=== PATIENT | female | born 1985 | race Hispanic/Latino ===

== ENCOUNTER 2017-08-24 19:21 | Emergency (ER) | payer OTHER ==
--- NOTE | 2017-08-24 20:17 | C.PDOC ---
History Of Present Illness 32 year old female presents to the ED c/o abdominal pain, constipation and decreased PO that started 2 days ago. Patient states she felt cotton mouth, but today she was able to have some water. Patient reports she is a regular heroin user. Patient states her LMP is just finishing. Patient denies fever, chills, nausea, vomit, dysuria, diarrhea. Chief Complaint (Nursing): GI Problem History Per: Patient History/Exam Limitations: no limitations Onset/Duration Of Symptoms: Days Current Symptoms Are (Timing): Still Present Location Of Pain/Discomfort: Diffuse Radiation Of Pain To:: None Quality Of Discomfort: "Pain" Associated Symptoms: Loss Of Appetite, Constipation Exacerbating Factors: None Alleviating Factors: None Recent travel outside of the [place]: No Additional History Per: Patient Abnormal Vaginal Bleeding: No Past Medical History Reviewed: Historical Data, Nursing Documentation, Vital Signs Vital Signs: Last Vital Signs Temp 98.0 F 08/24/17 21:40 Pulse 72 08/24/17 21:40 Resp 18 08/24/17 21:40 BP 127/84 08/24/17 21:40 Pulse Ox 96 08/24/17 21:40 - Medical History PMH: No Chronic Diseases Surgical History: No Surg Hx Family History: States: Unknown Family Hx - Social History Hx Alcohol Use: No Hx Substance Use: Yes Review Of Systems Constitutional: Negative for: Fever, Chills Cardiovascular: Negative for: Chest Pain, Palpitations Gastrointestinal: Positive for: Abdominal Pain, Constipation Musculoskeletal: Negative for: Back Pain Skin: Negative for: Rash Neurological: Negative for: Weakness, Numbness Physical Exam - Physical Exam Appears: Non-toxic, No Acute Distress Skin: Normal Color, Warm, Dry Head: Atraumatic, Normacephalic Eye(s): bilateral: Normal Inspection Nose: No Discharge Oral Mucosa: Dry Neck: Normal ROM, Supple Chest: Symmetrical Cardiovascular: Rhythm Regular, No Murmur, Other (resting pulse of 92) Respiratory: Normal Breath Sounds, No Rales, No Rhonchi, No Wheezing Gastrointestinal/Abdominal: Soft, No Tenderness, No Guarding, No Rebound Extremity: Normal ROM, No Tenderness, No Swelling Neurological/Psych: Oriented x3, Normal Speech ED Course And Treatment O2 Sat by Pulse Oximetry: 95 (On RA) Pulse Ox Interpretation: Normal Medical Decision Making Medical Decision Making: Impression: abdominal pain, constipation Plan: * Zofran 4 mg PO * PO challenge * UA Patient reports she is a regular heroin user. Disposition - Disposition Referrals: [facility] [Outside] Disposition: HOME/ ROUTINE Disposition Time: 05:14 Condition: GOOD Instructions: Dehydration, Adult (DC), Polysubstance Abuse Forms: [facility] (Yemeni) Print Language: GUYANESE - Clinical Impression Clinical Impression: Dehydration - Scribe Statement The provider has reviewed the documentation as recorded by the Scribe Crow Jones All medical record entries made by the Scribe were at my direction and personally dictated by me. I have reviewed the chart and agree that the record accurately reflects my personal performance of the history, physical exam, medical decision making, and the department course for this patient. I have also personally directed, reviewed, and agree with the discharge instructions and disposition.
[2017-08-24 20:49] LABS: SQUAMOUS EPITHIAL 10 /hpf (0-5); URINE BACTERIA FEW (<OCC); URINE BILIRUBIN NEGATIVE (NEGATIVE); URINE BLOOD 2+ (NEGATIVE); URINE CLARITY Hazy (Clear); URINE COLOR Amber (YELLOW); URINE GLUCOSE (UA) NORMAL (Normal); URINE LEUKOCYTE ESTERASE TRACE Leu/uL (Negative); URINE PROTEIN 2+ mg/dL (NEGATIVE)
[2017-08-24 21:40] VITALS: BP 127/84; PULSE 72; RESP 18; TEMP 98
[2017-08-25 05:18] VITALS: O2SAT 95
== END 2017-08-24 21:41 | disposition home or self-care (01) ==
LOC: C.ER 19:21
DX: E86.0 Dehydration (principal)

== ENCOUNTER 2017-08-30 16:16 | Inpatient (IN) | payer MEDICAID, MEDICARE, OTHER ==
[2017-08-30 17:43] LABS: HCG,QUALITATIVE URINE NEGATIVE (NEGATIVE)
[2017-08-30 17:46] LABS: SQUAMOUS EPITHIAL 17 /hpf (0-5); URINE BACTERIA OCC (<OCC); URINE BILIRUBIN NEGATIVE (NEGATIVE); URINE BLOOD NEGATIVE (NEGATIVE); URINE CLARITY Hazy (Clear); URINE COLOR Amber (YELLOW); URINE GLUCOSE (UA) NORMAL (Normal); URINE LEUKOCYTE ESTERASE NEG Leu/uL (Negative); URINE PROTEIN 1+ mg/dL (NEGATIVE)
[2017-08-30 18:05] LABS: BARBITURATES, UR NEGATIVE (NEGATIVE); BENZODIAZEPINES, UR NEGATIVE (NEGATIVE); PHENCYCLIDINE, UR NEGATIVE (NEGATIVE)
[2017-08-30 18:08] LABS: OPIATES, UR POSITIVE (NEGATIVE)
--- NOTE | 2017-08-30 18:16 | C.PDOC ---
History Of Present Illness <Mallika Hicks - Last Filed: 08/30/17 18:45> <Alejandro Hernandez - Last Filed: 08/30/17 19:20> Patient is a 32 y/o female who presents to the ED for heroin detox. Admits to IVDA. Patient admits last use was today. Denies any PMH. Has no complaints. Denies SI/HI. (Mallika Hicks) History Per: Patient History/Exam Limitations: no limitations Onset/Duration Of Symptoms: Hrs (last use today) Current Symptoms Are (Timing): Still Present Modifying Factor(s): Narcotics (heroin) Recent travel outside of the [place]: No <Mallika Hicks - Last Filed: 08/30/17 18:45> <Alejandro Hernandez - Last Filed: 08/30/17 19:20> Time Seen by Provider: 08/30/17 16:39 Chief Complaint (Nursing): Substance Abuse Past Medical History Reviewed: Historical Data, Nursing Documentation, Vital Signs - Medical History PMH: No Chronic Diseases Denies: Diabetes, Hepatitis, HIV, HTN, Seizures, Sexually Transmitted Disease Surgical History: No Surg Hx Family History: States: No Known Family Hx - Social History Hx Tobacco Use: Yes (heavy smoker) Hx Alcohol Use: No Hx Substance Use: Yes <Mallika Hicks - Last Filed: 08/30/17 18:45> Vital Signs: Last Vital Signs Temp 97.7 F 08/30/17 16:20 Pulse 77 08/30/17 16:20 Resp 16 08/30/17 16:20 BP 132/82 08/30/17 16:20 Pulse Ox 99 08/30/17 18:47 Review Of Systems Psych: Positive for: Withdrawal (requesting heroin detox) <Mallika Hicks - Last Filed: 08/30/17 18:45> Physical Exam - Physical Exam Appears: Well, Non-toxic, No Acute Distress Skin: Normal Color, Warm, Dry, Other (track pool on right upper arm) Head: Atraumatic, Normacephalic Eye(s): bilateral: Normal Inspection, EOMI Oral Mucosa: Moist Neck: Normal ROM, Supple Cardiovascular: Rhythm Regular Respiratory: Normal Breath Sounds, No Rales, No Rhonchi, No Wheezing Gastrointestinal/Abdominal: Soft, No Tenderness Neurological/Psych: Oriented x3, Normal Speech <Mallika Hicks - Last Filed: 08/30/17 18:45> ED Course And Treatment - Laboratory Results Result Diagrams: 08/30/17 18:12 O2 Sat by Pulse Oximetry: 99 Progress Note: Case endorsed to Dr Hernandez pending crisis evaluation and disposition. <Mallika Hicks - Last Filed: 08/30/17 18:45> - Laboratory Results Result Diagrams: 08/30/17 18:12 08/30/17 18:12 <Alejandro Hernandez - Last Filed: 08/30/17 19:20> Disposition - Disposition Disposition Time: 18:47 <Mallika Hicks - Last Filed: 08/30/17 18:45> Discussed With : Jaskaran Dominguez Doctor Will See Patient In The: Hospital Counseled Patient/Family Regarding: Diagnosis - Disposition Disposition Time: 19:20 <Alejandro Hernandez - Last Filed: 08/30/17 19:20> - Disposition Disposition: HOSPITALIZED Condition: STABLE Forms: [facility] (Guinean) - Clinical Impression Clinical Impression: Opioid dependence - Scribe Statement The provider has reviewed the documentation as recorded by the Scribe <Mallika Hicks - Last Filed: 08/30/17 18:45> <Alejandro Hernandez - Last Filed: 08/30/17 19:20> - Scribe Statement Katya Porter All medical record entries made by the Scribe were at my direction and personally dictated by me. I have reviewed the chart and agree that the record accurately reflects my personal performance of the history, physical exam, medical decision making, and the department course for this patient. I have also personally directed, reviewed, and agree with the discharge instructions and disposition. (Mallika Hicks)
[2017-08-30 18:19] LABS: BASO # 0.1 K/uL (0.0-0.2); BASO % 0.6 % (0.0-2.0); EOS # 0.1 K/uL (0.0-0.7); EOS % 1.3 % (0.0-4.0); HEMOGLOBIN 10.7 g/dL (11.0-16.0); LYMPH % 22.9 % (20.0-40.0); MEAN CELL VOLUME 61.9 fL (81.0-99.0); MEAN CORPUSCULAR HEMOGLOBIN 19.7 pg (27.0-31.0); MEAN CORPUSCULAR HGB CONC 31.8 g/dL (33.0-37.0); MEAN PLATELET VOLUME 9.8 fL (7.2-11.7); MONO # 0.6 K/uL (0.0-0.8); MONO % 7.2 % (0.0-10.0); NEUT # 5.9 K/uL (1.8-7.0); NRBC % 0.2 % (0.0-2.0); RBC 5.44 Mil/uL (3.80-5.20); WHITE BLOOD COUNT 8.7 K/uL (4.8-10.8)
[2017-08-30 18:58] LABS: ALB/GLOB RATIO 1.3 (1.0-2.1); ALBUMIN 4.2 g/dL (3.5-5.0); ALT/SGPT 41 U/L (9-52); AST/SGOT 35 U/L (14-36); BLOOD UREA NITROGEN 12 mg/dL (7-17); CALCIUM 8.9 mg/dl (8.6-10.4); GFR AFRICAN-AMERICAN > 60; GFR NON-AFRICAN AMERICAN > 60
[2017-08-30] MEDS ORDERED: Potassium Chloride 20 mEq/15 ml LIQ UD PO STA (19:10)
[2017-08-30] MEDS ORDERED: Potassium Chloride 20 mEq ER Tab PO ONE (19:19)
[2017-08-30] MEDS ORDERED: Aluminum Hydroxide/Magnesium Hydroxide Susp (30 mL) PO PRN (22:16)
--- NOTE | 2017-08-30 22:40 | PCM.BM ---
Treatment Plan Problems - Problems identified on initial assessmt Potential for opiate withdrawal Date Initiated: 08/30/17 Time Initiated: 22:39 Assessment reference: NA Status: Active Priority: 1 Treatment assets and liabiliti Patient Assests: cooperative, self-reliant, ADL independent Patient Liabilities: substance abuse - Milieu Protocol Maintain good personal hygiene: daily Encourage regular showers, daily Remind patient to perform daily oral care, daily Assist patient to perform ADL's Conduct patient checks and document Observation sheet: Q15 minutes Maintain personal safety: every shift Educate patient to report safety concerns to staff, every shift Monitor environment for contraband/sharps Medication safety: Monitor for expected outcome, potential side effects: every shift, Assess barriers to learning: every shift, Assess readiness for medication education: every shift
[2017-08-31] MEDS ORDERED: Buprenorphine Hydrochloride 2 mg SL ONE ×2 (11:42→12:43)
--- NOTE | 2017-08-31 19:40 | PCM.PSYCH ---
Initial Psychiatric Evaluation - Initial Psychiatric Evaluation Type of Admission: Voluntary Legal Status: Capacity Chief Complaint (in patient's own words): I need help from his substance use History of Present Illness and Precipitating Events: Patient is a 31 years old, single, unemployed, female with no previous psychiatric history was admitted due to withdrawing from substance use. Patient reported she started using opiate pain medications in 2007 initially prescribed for her back ache later started to buying from [facility]. She switched to heroin in 2010, increased gradually to 15 bags daily, IV. Last use reported yesterday, 5 bags. History of abstinence from August 2016 to April 2017. His stay of 7 detox and 7 rehabs in the past. Cocaine: Was using fugax daily, IV. Last used yesterday. Alcohol: Started at 17 years of age up to 1 pint daily. Last used yesterday, 2 shorts. Patient has history of arrests for shoplifting and possession of drugs, waiting for court date. Neck to She was born in [place], has GED. Not working. Last job was one week ago. She quit her job due to substance use. Never and has 12 years old daughter who lives with patient's mother. lives with her boyfriend. Her height is 5 feet 6 inches and weight is 200 pounds Patient smokes one pack of cigarettes daily and is requesting for nicotine patch. Wants to go to a longterm house for follow-up care after discharge from the hospital. Current Medications: Active Medications Generic Name Dose Route Start Last Admin Trade Name Freq PRN Reason Stop Dose Admin Al Hydrox/Mg Hydrox/Simethicone 30 ml 08/30/17 22:16 Maalox 30 Ml PO TID PRN Indigestion / Heartburn Clonidine HCl 0.1 mg 08/30/17 22:16 Catapres PO Q8 PRN COWS Score More or Equal to 5 Dicyclomine HCl 10 mg 08/30/17 22:18 Bentyl PO Q6 PRN Other Gabapentin 300 mg 08/30/17 22:30 08/31/17 17:03 Neurontin PO 300 mg BID ACOSTA Administration Hydroxyzine HCl 25 mg 08/30/17 20:53 08/30/17 21:38 Atarax PO 25 mg Q8 PRN Administration Anxiety Ibuprofen 400 mg 08/30/17 22:21 08/31/17 16:05 Motrin Tab PO 400 mg Q6 PRN Administration Pain, moderate (4-7) Loperamide HCl 2 mg 08/30/17 22:16 Imodium PO Q8 PRN Diarrhea Ondansetron HCl 4 mg 08/30/17 22:16 Zofran Tab PO Q8 PRN Nausea/Vomiting Trazodone HCl 50 mg 08/30/17 22:30 08/30/17 22:35 Desyrel PO Not Given HS ACOSTA Past Psychiatric History - Past Psychiatric History History of Abuse: None reported History of ETOH/Drug Use: See HPI History of Family Illness: Reported history of alcohol use and her father and history of opiate use and her brother. Pertinent Medical Hx (Current Medical&Sleep Prob, Allergies): Allergies Allergy/AdvReac Type Severity Reaction Status Date / Time Latex, Natural Rubber Allergy Verified 08/24/17 19:27 sulfur dioxide Allergy Verified 08/24/17 19:27 No Known Home Med 08/24/17 Review of Systems - Psychiatric Psychiatric: Anxiety, Other Mental Status Examination - Personal Presentation Personal Presentation: Looks stated age - Affect Affect: Other (Appropriate) - Motor Activity Motor Activity: Calm - Reliability in Providing Information Reliability in Providing Information: Fair - Speech Speech: Relevant - Mood Mood: Anxious - Formal Thought Process Formal Thought Process: No Impairment Additional comments: None - Hallucinations/Delusions Hallucinations: Other (None reported) Delusions: Other - Obsessions/Compulsions Obsessions: None Compulsions: None - Cognitive Functions Orientation: Person, Place, Situation, Time Sensorium: Alert Attention/Concentration: Attentive Abstract Thinking: [place] Estimate of Intelligence: Average Judgement: Intact, as evidence by: Insight regarding need for hospitalization Memory: Recent intact, as evidence by: Ability to recall events of the day, Remote intact, as evidenced by: Ability to recall historical events - Risk Risk: Withdrawal, Diminished functioning - Strength & Assets Inventory Strength & Assets Inventory: Cooperative - Limitations Limitations: Other DSM 5 DX - DSM 5 DSM 5 Diagnosis: Opiate use disorder severe Cocaine use disorder severe Alcohol use disorder severe - Recommended/Plan of Treatment Treatment Recommendations and Plan of Treatment: Patient education Supportive therapy CBT for relapse prevention [place] for abstinence We'll start Subutex. Withdrawal symptoms Other when necessary medications Patient's blood alcohol level was less than 10 and has no withdrawal symptoms. If needed will start treatment for alcohol withdrawal symptoms. Patient wants to go to a longterm house for follow-up care after discharge from the hospital. Projected ELOS: 45 days - Smoking Cessation Smoking Cessation Initiated: Yes
[2017-08-31 21:16] VITALS: RESP 18
[2017-09-01 02:42] VITALS: PULSE 60
[2017-09-01] MEDS ORDERED: Buprenorphine Hydrochloride 8 mg SL ONE (10:00)
[2017-09-01 10:40] VITALS: BP 108/73; TEMP 98; O2SAT 96
--- NOTE | 2017-09-01 18:32 | PCM.PYCHDC ---
Mental Status Examination - Mental Status Examination Orientation: Person, Place, Situation, Time Memory: Intact Mood: Neutral Affect: Other (Appropriate) Speech: Appropriate Attention: WNL Concentration: WNL Association: WNL Fund of Knowledge: WNL Formal Thought Process: No Impairment Description of patient's judgement and insight: Fair Psychotic Thoughts and Behaviors: None Suicidal Ideation: No Current Homicidal Ideation?: No Discharge Summary - Discharge Note Reason for Hospitalization: Opiate use disorder Cocaine use disorder Alcohol use disorder Laboratory Data: Reviewed Consultations:: List each consultation separately and include: 1. Reason for request. 2. Findings. 3. Follow-up Summary of Hospital Course include:: 1. Description of specific treatment plan utilized for patients during their course of treatmen. 2. Summarize the time- course for resolution of acute symptoms and/or regressed behaviors. 3. Describe issues identified and worked on during hospitalization. 4. Describe medication utilized. 5. Describe medical problems identified and treated. 6. Reassessment of suicide risk Summary of Hospital Course: Patient is a 31 years old, single, unemployed, female with no previous psychiatric history was admitted due to withdrawing from substance use. Patient reported she started using opiate pain medications in 2007 initially prescribed for her back ache later started to buying from [employer]. She switched to heroin in 2010, increased gradually to 15 bags daily, IV. Last use reported yesterday, 5 bags. History of abstinence from August 2016 to April 2017. His stay of 7 detox and 7 rehabs in the past. Cocaine: Was using fugax daily, IV. Last used yesterday. Alcohol: Started at 17 years of age up to 1 pint daily. Last used yesterday, 2 shorts. Patient has history of arrests for shoplifting and possession of drugs, waiting for court date. Neck to She was born in [place], has GED. Not working. Last job was one week ago. She quit her job due to substance use. Never and has 12 years old daughter who lives with patient's mother. lives with her boyfriend. Her height is 5 feet 6 inches and weight is 200 pounds Patient smokes one pack of cigarettes daily and is requesting for nicotine patch. Wants to go to a jail house for follow-up care after discharge from the hospital. Patient was started on Subutex for opiate withdrawal symptoms. Patient was also started on other when necessary medications. Patient started feeling little better. Today patient decided to leave without completing her detox. Education provided about the treatment. Still patient refused to stay. Patient was educated that in case of any adverse event including decompensation , relapse, overdosed, or even of the patient, patient will be responsible for her actions. Patient agreed with the above but still refuses to stay and left the unit AGAINST MEDICAL ADVICE. At the time of evaluation and discharge, patient was awake alert oriented 3, no delusions, no auditory or visual hallucinations, no suicidal ideations or homicidal ideations. - Final Diagnosis (DSM 5) Condition upon Discharge: STABLE Disposition: AGAINST MEDICAL ADVICE Follow-up Treatment Plan: Patient wants to go to a jail house for follow-up care after discharge from the hospital. - Smoking Cessation Smoking Cessation Medication prescribed: No - Antipsychotic Medications Pt discharged on 2 or more routine antipsychotic medications: No
== END 2017-09-01 12:30 | disposition left against medical advice (07) | DRG 743 ==
LOC: C.ER 16:16 → C.7D 19:20
PROC: HZ52ZZZ Individual Psychotherapy for Substance Abuse Treatment, Cognitive-Behavioral (ICD-10-PCS; principal; 2017-08-30)
PROC: HZ2ZZZZ Detoxification Services for Substance Abuse Treatment (ICD-10-PCS; 2017-08-30)
PROC: HZ59ZZZ Individual Psychotherapy for Substance Abuse Treatment, Supportive (ICD-10-PCS; 2017-08-30)
PROC: HZ42ZZZ Group Counseling for Substance Abuse Treatment, Cognitive-Behavioral (ICD-10-PCS; 2017-08-30)
DX: F11.23 Opioid dependence with withdrawal (principal); F14.20 Cocaine dependence, uncomplicated; F10.20 Alcohol dependence, uncomplicated; Y90.0 Blood alcohol level of less than 20 mg/100 ml; F17.210 Nicotine dependence, cigarettes, uncomplicated

== ENCOUNTER 2017-09-24 23:36 | Inpatient (IN) | payer MEDICAID, OTHER ==
--- NOTE | 2017-09-25 | C.PDOC ---
History Of Present Illness 32 year old female presents to the ED for depression and suicidal ideation over the last couple days. Patient reports suicidal plan of which she took a couple Tylenol PMs yestersday to kill herself. Time Seen by Provider: 09/24/17 23:52 Chief Complaint (Nursing): Psychiatric Evaluation History Per: Patient History/Exam Limitations: no limitations Onset/Duration Of Symptoms: Days (x 1) Current Symptoms Are (Timing): Still Present Suicide/Self Injury Attempted (Context): Other (Attempted suicide) Modifying Factor(s): None Severity: None Associated Symptoms: Depression, Suicidal Thoughts, Suicidal Plan Involuntary Hold By: None Recent travel outside of the [place]: No Additional History Per: Patient Past Medical History Reviewed: Historical Data, Nursing Documentation, Vital Signs Vital Signs: Last Vital Signs Temp 98.2 F 09/25/17 03:09 Pulse 76 09/25/17 04:36 Resp 16 09/25/17 04:36 BP 110/72 09/25/17 04:36 Pulse Ox 96 09/25/17 04:36 - Medical History PMH: Denies: Diabetes, Hepatitis, HIV, HTN, Seizures, Sexually Transmitted Disease - [facility] Procedures DETOXIFICATION SERVICES FOR SUBSTANCE ABUSE TREATMENT (08/30/17) 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 FOR SUBSTANCE ABUSE, COGNITIVE BEHAVIORAL (08/30/17) INDIV PSYCHOTHERAPY FOR SUBSTANCE ABUSE TREATMENT, SUPPORT (08/30/17) INDIV PSYCHOTHERAPY FOR SUBSTANCE ABUSE, COGNITIV BEHAVIORAL (08/30/17) Family History: States: Unknown Family Hx - Social History Hx Tobacco Use: Yes (heavy smoker) Hx Alcohol Use: Yes Hx Substance Use: Yes - Immunization History Hx Tetanus Toxoid Vaccination: No Hx Influenza Vaccination: No Hx Pneumococcal Vaccination: No Review Of Systems Constitutional: Negative for: Fever, Chills, Sweats Cardiovascular: Negative for: Chest Pain Respiratory: Negative for: Cough, Shortness of Breath Gastrointestinal: Negative for: Nausea, Vomiting, Diarrhea Musculoskeletal: Negative for: Back Pain Skin: Negative for: Rash Neurological: Negative for: Weakness Psych: Positive for: Depression, Suicidal ideation (and suicidal plan ) Physical Exam - Physical Exam Appears: Non-toxic, No Acute Distress Skin: Warm, Dry Head: Normacephalic Eye(s): bilateral: Normal Inspection Oral Mucosa: Moist Neck: Supple Chest: Symmetrical Cardiovascular: Rhythm Regular Respiratory: No Rales, No Rhonchi, No Wheezing Gastrointestinal/Abdominal: Soft, No Tenderness Back: Normal Inspection Extremity: Normal ROM (x 4) Extremity: Bilateral: Atraumatic Pulses: Left Dorsalis Pedis: Normal, Right Dorsalis Pedis: Normal Neurological/Psych: Oriented x3 Gait: Steady ED Course And Treatment - Laboratory Results Result Diagrams: 09/25/17 00:17 09/25/17 00:17 O2 Sat by Pulse Oximetry: 99 (RA) Pulse Ox Interpretation: Normal Progress Note: Time: 16. Plan: -- EKG. -- Acetaminophen. -- Alcohol Serum. -- CMP. -- Urine Druge Screen. -- Salicylate. -- CBC with differntials. -- Diff Review Comment. -- CXR One View. -- 1:1 observation. - - [facility] Crisis Evaluation. -- HCG Qualitative. 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 - Scribe Statement The provider has reviewed the documentation as recorded by the Scribe Antoine Forrest Decision To Admit - Pt Status Changed To: Hospital Disposition Of: Inpatient - Admit Certification Admit to Inpatient:: After my assessment, the patient will require hospitalization for at least two midnights. This is because of the severity of symptoms shown, intensity of services needed, and/or the medical risk in this patient being treated as an outpatient. - InPatient: Physician Admission Certification: I certify that this patient requires 2 or more midnights of care for the following reason:: After my assessment, the patient will require hospitalization for at least two midnights. This is because of the severity of symptoms shown, intensity of services needed, and/or the medical risk in this patient being treated as an outpatient. - . Bed Request Type: Psychiatry Admitting Physician: Kevon Medeiros Patient Diagnosis: Depression
[2017-09-25 00:20] LABS: BASO % 0.4 % (0.0-2.0); EOS # 0.1 K/uL (0.0-0.7); EOS % 0.8 % (0.0-4.0); HEMOGLOBIN 10.3 g/dL (11.0-16.0); LYMPH # 1.6 K/uL (1.0-4.3); LYMPH % 17.4 % (20.0-40.0); MEAN CORPUSCULAR HEMOGLOBIN 19.9 pg (27.0-31.0); MEAN CORPUSCULAR HGB CONC 32.9 g/dL (33.0-37.0); MEAN PLATELET VOLUME 9.1 fL (7.2-11.7); MONO # 0.6 K/uL (0.0-0.8); MONO % 6.1 % (0.0-10.0); NEUT # 7.1 K/uL (1.8-7.0); NEUT % 75.3 % (50.0-75.0); NRBC % 0.1 % (0.0-2.0); RBC 5.17 Mil/uL (3.80-5.20); RED CELL DISTRIBUTION WIDTH 15.9 % (11.5-14.5); WHITE BLOOD COUNT 9.4 K/uL (4.8-10.8)
[2017-09-25 00:28] LABS: MEAN CELL VOLUME 60.5 fL (81.0-99.0)
[2017-09-25 00:43] LABS: ALB/GLOB RATIO 1.3 (1.0-2.1); ALBUMIN 4.7 g/dL (3.5-5.0); ALT/SGPT 21 U/L (9-52); AST/SGOT 19 U/L (14-36); BLOOD UREA NITROGEN 15 mg/dL (7-17); CALCIUM 9.3 mg/dl (8.6-10.4); GFR AFRICAN-AMERICAN > 60; GFR NON-AFRICAN AMERICAN > 60
[2017-09-25 00:51] LABS: ACETAMINOPHEN < 10.0 ug/mL (10.0-30.0); SALICYLATE < 1.0 mg/dL 1
[2017-09-25 00:52] LABS: HCG,QUALITATIVE URINE NEGATIVE (NEGATIVE)
[2017-09-25 00:55] LABS: SQUAMOUS EPITHIAL 16 /hpf (0-5); URINE BILIRUBIN NEGATIVE (NEGATIVE); URINE BLOOD NEGATIVE (NEGATIVE); URINE CLARITY Hazy (Clear); URINE COLOR Amber (YELLOW); URINE GLUCOSE (UA) NORMAL (Normal); URINE LEUKOCYTE ESTERASE NEG Leu/uL (Negative); URINE PROTEIN 1+ mg/dL (NEGATIVE)
[2017-09-25 01:08] LABS: BARBITURATES, UR NEGATIVE (NEGATIVE); BENZODIAZEPINES, UR NEGATIVE (NEGATIVE); PHENCYCLIDINE, UR NEGATIVE (NEGATIVE)
[2017-09-25 01:20] LABS: OPIATES, UR POSITIVE (NEGATIVE)
--- NOTE | 2017-09-25 06:20 | PCM.BM ---
<Zoila Ram - Last Filed: 09/25/17 06:19> Treatment Plan Problems - Problems identified on initial assessmt Suicidal Ideation Date Initiated: 09/25/17 Time Initiated: 05:45 Assessment reference: NA Status: Monitor Opiates Abuse Date Initiated: 09/25/17 Time Initiated: 05:45 Assessment reference: NA Status: Active Treatment assets and liabiliti Patient Assests: cooperative, self-reliant, ADL independent Patient Liabilities: substance abuse (Opiates, cocaine) - Milieu Protocol Maintain good personal hygiene: daily Encourage regular showers, daily Remind patient to perform daily oral care, every shift Assist patient to perform ADL's Conduct patient checks and document Observation sheet: Q15 minutes Maintain personal safety: every shift Educate patient to report safety concerns to staff, every shift Monitor environment for contraband/sharps Medication safety: Monitor for expected outcome, potential side effects: every shift, Assess barriers to learning: every shift, Assess readiness for medication education: every shift <Tamiko Maurice - Last Filed: 09/26/17 09:46> Family Contact Family involvement: Patient does not wish Family/SO involvement Family contact: Patient declines to allow family contact at present - Goals for Treatment Patient goals for treatment: "I want to go to a rehab." Discharge/Continuing Care - Education Needs Education Needs: Patient Medication, Patient Coping Skills, Patient Community resources, Patient Aftercare Safety Plan - Discharge Discharge Criteria: Free of Suicidal thoughts, Normal sleep pattern, Ability to care for self, No longer exhibiting s/s of withdrawal, Reduction of target symptoms Discharge to:: Other - Treatment Team Participation Discussed with Family/SO: No Was Patient/Family/SO present at Treatment Team Meeting: Yes
--- NOTE | 2017-09-25 09:15 | RAD ---
Chest x-ray single frontal view History: Detox. Comparison: None available. Findings: No focal infiltrate or effusion. Heart size within normal limits. Impression: No focal infiltrate or effusion.
--- NOTE | 2017-09-25 10:06 | PCM.PSYCH ---
Initial Psychiatric Evaluation - Initial Psychiatric Evaluation Type of Admission: Voluntary Legal Status: Capacity Chief Complaint (in patient's own words): I was feeling depressed and suicidal.' History of Present Illness and Precipitating Events: Patient is a 32yo CF, who came to the ED with depressed mood and suicidal ideation. As per the ED noted, pt reported "I've been having thoughts of suicide for the past couple of weeks;" But they (thoughts of suicide) have been getting super severe the last couple of days;" Pt described her worsening thoughts of suicide as: "Looking up and Googling how to do it"; Pt's internet search directed her to OD on "Tylenol PM". Pt also reports recent idx to "jump in front of a train" ; Pt has no prior hx of suicide attempts, but she does have a prior hx of suicide idx. Pt attributed her recent thoughts of suicide to being "hooked on drugs" and having minimal contact with her 12yo daughter. She reports of injecting 10-20 bags of heroin daily along with 4-5 voils of cocaine. She reports withdrawal symptoms including anxiety, sweating, headaches cramps, nausea and joint pains. She report depressed mood and feelings of hopelessness and helplessness. She reports poor sleep and poor appetite. She denies any auditory or visual hallucinations or any psychotic symptoms. She denies any past h/o any inpatient psychiatric hospitalizations. However she reports h/o multiple detoxes in the past. Her last detox was at last month. At some point, Pt was placed in the assisted house, but she was subsequently terminated because she was caught using IV heroin and Suboxone. PMH: None reported Past Psychiatric History - Past Psychiatric History Previous Treatment History: Inpatient Pertinent Medical Hx (Current Medical&Sleep Prob, Allergies): Allergies Allergy/AdvReac Type Severity Reaction Status Date / Time Latex, Natural Rubber Allergy Verified 09/24/17 23:47 sulfur dioxide Allergy Verified 09/24/17 23:47 No Known Home Med 08/24/17 Review of Systems - Review of Systems All systems: reviewed and no additional remarkable complaints except - Psychiatric Psychiatric: Anxiety, Irritability, Suicidal Ideation Mental Status Examination - Personal Presentation Personal Presentation: Looks stated age - Affect Affect: Constricted, Depressed - Motor Activity Motor Activity: Calm - Reliability in Providing Information Reliability in Providing Information: Fair - Speech Speech: Organized - Mood Mood: Depressed, Anxious - Formal Thought Process Formal Thought Process: No Impairment - Obsessions/Compulsions Obsessions: No Compulsions: No - Cognitive Functions Orientation: Person, Place, Situation, Time Sensorium: Alert Attention/Concentration: Attentive Abstract Thinking: [place] Estimate of Intelligence: Below average Judgement: Imparied, as evidence by: Poor judgement, Imparied, as evidence by: Lack of insight into illness - Risk Risk: Suicidal, Withdrawal, Diminished functioning - Strength & Assets Inventory Strength & Assets Inventory: Family support - Limitations Limitations: Living alone DSM 5 DX - DSM 5 DSM 5 Diagnosis: Major depressive disorder recurrent severe without psychotic features Opioid use disorder severe Opioid withdrawal Cocaine use disorder severe - Recommended/Plan of Treatment Treatment Recommendations and Plan of Treatment: Major depressive disorder recurrent severe without psychotic features -CBT -Psychoeducation -Supportive therapy, group therapy, individual therapy -Celexa 20 mg PO daily -Neurontin 300 mg by mouth 3 times a day -Trazodone 50 mg by mouth daily at bedtime Opioid use disorder severe -CBT -Psychoeducation -Supportive therapy, individual therapy -Use AL for abstinence Opioid withdrawal -CBT -Psychoeducation -Supportive therapy, individual therapy -Clonidine when necessary -Methadone taper -Start prn meds Cocaine use disorder severe -Monitor signs and symptoms -Use AL for abstinence
[2017-09-25] MEDS ORDERED: Aluminum Hydroxide/Magnesium Hydroxide Susp (30 mL) PO PRN (11:44)
--- NOTE | 2017-09-27 20:47 | PCM.PYCHPN ---
Psychiatric Progress Note - Psychiatric Progress Note Patient seen today, length of contact: 16 min Patient Chief Complaint: "Too anxious" Problems Identified/Issues Discussed: The pt is seen, chart reviewed, case discussed with staff. The pt is compliant with medications and reports no side-effects. Symptoms are improving but needs more time to stabilize. After care discussed, support and psychoeducation given. Anxiety and stress mgt discussed She has many borderline PD traits She is insinuating she might leave AMA - risks discussed Medication Change: Yes (detox changes daily) Medical Record Reviewed: Yes Mental Status Examination - Cognitive Function Orientation: Person, Place, Situation, Time Memory: Intact Attention: Poor Concentration: Poor Association: WNL Fund of Knowledge: WNL - Mood Mood: Depressed, Anxious - Affect Affect: Constricted, Depressed - Speech Speech: Appropriate - Formal Thought Process Formal Thought Process: No Impairment - Suicidal Ideation Suicidal Ideation: No - Homicidal Ideation Homicidal Ideation: No Goal/Treatment Plan - Goal/Treatment Plan Need for Continued Stay: Severe depression anxiety, Discharge may exacerbated symptoms, Severe functional impairment Progress Toward Problem(s) and Goals/Treatment Plan: Continue medications Support and psychoeducation daily Attend groups and activities daily After care planning by FLORINDA
--- NOTE | 2017-09-28 06:17 | PCM.PYCHPN ---
Psychiatric Progress Note - Psychiatric Progress Note Patient seen today, length of contact: 16 min Patient Chief Complaint: "Too anxious" Problems Identified/Issues Discussed: The pt is seen, chart reviewed, case discussed with staff. Support given, CBT and NE used briefly No new symptoms reported, improving slowly and needs more time No SEs from medications, risks discussed. After care discussed -wants rehab She later hooked up with an antisocial patient and kissed each other and did not follow rules When he was discharged she wanted to go as well but then calmed down and decided to stay and follow unit rules. She has this borderline tendency and gets too anxious or irate easily Medication Change: Yes (detox changes daily) Medical Record Reviewed: Yes Mental Status Examination - Cognitive Function Orientation: Person, Place, Situation, Time Memory: Intact Attention: Poor Concentration: Poor Association: WNL Fund of Knowledge: WNL - Mood Mood: Depressed, Anxious - Affect Affect: Constricted, Depressed - Speech Speech: Appropriate - Formal Thought Process Formal Thought Process: No Impairment - Suicidal Ideation Suicidal Ideation: No - Homicidal Ideation Homicidal Ideation: No Goal/Treatment Plan - Goal/Treatment Plan Need for Continued Stay: Severe depression anxiety, Discharge may exacerbated symptoms, Severe functional impairment Progress Toward Problem(s) and Goals/Treatment Plan: Continue medications Support and psychoeducation daily Attend groups and activities daily After care planning by FLORINDA
[2017-09-28 08:33] VITALS: BP 110/75; PULSE 90; RESP 18; TEMP 97.5; O2SAT 98
--- NOTE | 2017-09-28 11:08 | PCM.PYCHDC ---
Mental Status Examination - Mental Status Examination Orientation: Person, Place, Situation, Time Memory: Intact Mood: Neutral Affect: Constricted Speech: Soft Attention: WNL Concentration: WNL Association: WNL Fund of Knowledge: WNL Formal Thought Process: No Impairment Description of patient's judgement and insight: good, fair Psychotic Thoughts and Behaviors: denies any AVH Suicidal Ideation: No Current Homicidal Ideation?: No Discharge Summary - Discharge Note Reason for Hospitalization: Patient is a 32yo CF, who came to the ED with depressed mood and suicidal ideation. As per the ED noted, pt reported "I've been having thoughts of suicide for the past couple of weeks;" But they (thoughts of suicide) have been getting super severe the last couple of days;" Pt described her worsening thoughts of suicide as: "Looking up and Googling how to do it"; Pt's internet search directed her to OD on "Tylenol PM". Pt also reports recent idx to "jump in front of a train" ; Pt has no prior hx of suicide attempts, but she does have a prior hx of suicide idx. Pt attributed her recent thoughts of suicide to being "hooked on drugs" and having minimal contact with her 12yo daughter. She reports of injecting 10-20 bags of heroin daily along with 4-5 voils of cocaine. She reports withdrawal symptoms including anxiety, sweating, headaches cramps, nausea and joint pains. She report depressed mood and feelings of hopelessness and helplessness. She reports poor sleep and poor appetite. She denies any auditory or visual hallucinations or any psychotic symptoms. She denies any past h/o any inpatient psychiatric hospitalizations. However she reports h/o multiple detoxes in the past. Her last detox was at last month. At some point, Pt was placed in the intermediate house, but she was subsequently terminated because she was caught using IV heroin and Suboxone. Consultations:: List each consultation separately and include: 1. Reason for request. 2. Findings. 3. Follow-up Summary of Hospital Course include:: 1. Description of specific treatment plan utilized for patients during their course of treatmen. 2. Summarize the time- course for resolution of acute symptoms and/or regressed behaviors. 3. Describe issues identified and worked on during hospitalization. 4. Describe medication utilized. 5. Describe medical problems identified and treated. 6. Reassessment of suicide risk Summary of Hospital Course: During the course of her stay, patient (pt) started progressively improving and no longer remained irritable, depressed, and suicidal. Her mood and anxiety were improved and she started attending groups and meetings and started socializing. Patient denied any feelings of hopelessness, helplessness, and worthlessness, denied any problem with the sleep or appetite, denied suicidal ideation or homicidal ideation. Pt denied any auditory or visual hallucinations. She denied any withdrawal symptoms. Some changes were made in her current medications and patient was discharged on following medications. She tolerated these medications very well and denied any side effects. Pt is to return to [place] and will follow-up with walk-in partial care program at [facility] in [place]. - Final Diagnosis (DSM 5) Condition upon Discharge: FAIR DSM 5: Major depressive disorder recurrent severe without psychotic features Opioid use disorder severe Opioid withdrawal Cocaine use disorder severe Disposition: HOME/ ROUTINE Follow-up Treatment Plan: Education: Pt was educated and counseled about the risks and benefits of taking and not taking medications. Pt was educated and counseled about the risks of drinking and abusing drugs. Pt was educated and counseled to go to the ER or call 911 if pt develop suicidal ideation or homicidal ideation, worsening of symptoms or severe side effects of the meds. Prescriptions/Medication Reconciliation: Citalopram [celEXA] 20 mg PO DAILY #30 tab Gabapentin [Neurontin] 400 mg PO BID #60 cap - Smoking Cessation Smoking Cessation Medication prescribed: No - Antipsychotic Medications Pt discharged on 2 or more routine antipsychotic medications: No
== END 2017-09-28 11:39 | disposition home or self-care (01) | DRG 430 ==
LOC: SUPCPDRO 23:36 → C.ER 23:36 → C.5E 09-25 04:52
PROVIDERS: ADMIT Psychiatry & Neurology Psychiatry; ATTEND Psychiatry & Neurology Psychiatry
PROC: GZ3ZZZZ Medication Management (ICD-10-PCS; principal; 2017-09-25)
PROC: GZHZZZZ Group Psychotherapy (ICD-10-PCS; 2017-09-25)
PROC: GZ56ZZZ Individual Psychotherapy, Supportive (ICD-10-PCS; 2017-09-25)
PROC: HZ2ZZZZ Detoxification Services for Substance Abuse Treatment (ICD-10-PCS; 2017-09-25)
PROC: HZ59ZZZ Individual Psychotherapy for Substance Abuse Treatment, Supportive (ICD-10-PCS; 2017-09-25)
DX: F33.2 Major depressive disorder, recurrent severe without psychotic features (principal); F11.23 Opioid dependence with withdrawal; F14.20 Cocaine dependence, uncomplicated; R45.851 Suicidal ideations; F17.210 Nicotine dependence, cigarettes, uncomplicated